=== PATIENT | male | born 1985 | race Hispanic/Latino ===

== ENCOUNTER 2017-07-26 20:02 | Emergency (ER) | payer BC ==
[2017-07-26 20:18] VITALS: BP 147/77; PULSE 50; RESP 14; TEMP 98.2; O2SAT 99
--- NOTE | 2017-07-26 20:46 | ED PDOC ---
HPI: Skin/Bite Injury Time Seen by Provider: 07/26/17 20:29 Chief Complaint (Nursing): Abnormal Skin Integrity Chief Complaint (Provider): rash on back History Per: Patient Onset/Duration Of Symptoms: Days (5) Current Symptoms Are (Timing): Still Present Location Of Injury: Right: Abdomen, Back Additional Complaint(s): progressive rash to RIGHT back and abdomen since Saturday, but had been feeling severe pain to area since Saturday and initially thought to be muscular. He has been taking motrin w minimal relief. Also applied icy-hot w lidocaine prior to onset of rash. No known exposures to chickenpox. Reports having chickenpox infection twice in childhood. Denies fever. Reports URI symptoms week prior to onset of pain, which has since resolved. PMD None. Past Medical History Reviewed: Historical Data, Nursing Documentation, Vital Signs Vital Signs: Last Vital Signs Temp 98.2 F 07/26/17 20:16 Pulse 50 L 07/26/17 20:16 Resp 14 07/26/17 20:16 BP 147/77 07/26/17 20:16 Pulse Ox 99 07/26/17 21:06 - Medical History PMH: No Chronic Diseases - Surgical History Surgical History: No Surg Hx - Family History Family History: States: No Known Family Hx - Social History Current smoker - smoking cessation education provided: No - Home Medications Home Medications: Ambulatory Orders Medication Instructions Recorded Calamine/Pramoxine [Caladryl] 180 ml EXT PRN PRN #1 bottle 07/26/17 Valacyclovir HCl [Valtrex] 1,000 mg PO TID #21 tablet 07/26/17 traMADol [Ultram] 50 mg PO TID PRN #15 tab 07/26/17 - Allergies Allergies/Adverse Reactions: Allergies Allergy/AdvReac Type Severity Reaction Status Date / Time No Known Allergies Allergy Verified 07/26/17 20:16 Review of Systems ROS Statement: Except As Marked, All Systems Reviewed And Found Negative (and as per HPI) Constitutional: Negative for: Fever, Chills Musculoskeletal: Positive for: Back Pain Skin: Positive for: Rash, Lesions Physical Exam - Reviewed Nursing Documentation Reviewed: Yes Vital Signs Reviewed: Yes - Physical Exam Appears: Positive for: In Acute Distress (mild painful) Head Exam: Positive for: ATRAUMATIC, NORMOCEPHALIC Skin: Positive for: Warm, Rash (vesicular erythematous rash in dermatomal pattern along RIGHT back extending to R lower abdomen) ENT: Negative for: Pharyngeal Erythema, Tonsillar Exudate Neck: Positive for: Painless ROM, Supple Cardiovascular/Chest: Positive for: Regular Rate, Rhythm. Negative for: Murmur Respiratory: Positive for: Normal Breath Sounds. Negative for: Respiratory Distress Gastrointestinal/Abdominal: Positive for: Soft. Negative for: Tenderness Back: Negative for: Vertebral Tenderness, Decreased ROM Extremity: Positive for: Normal ROM. Negative for: Deformity Lymphatic: Negative for: Adenopathy Neurologic/Psych: Positive for: Alert. Negative for: Motor/Sensory Deficits - ECG O2 Sat by Pulse Oximetry: 99 Disposition - Clinical Impression Clinical Impression: Silvia Counseled Patient/Family Regarding: Diagnosis, Need For Followup, Rx Given - Disposition Disposition: Routine/Home Disposition Time: 20:43 Condition: STABLE Additional Instructions: YOU CAN TAKE BENADRYL FOR ITCHING AND IBUPROFEN FOR MILD TO MODERATE PAIN. WASH HANDS FREQUENTLY READ ATTACHED INSTRUCTIONS ON HOW TO CARE FOR YOU CONDITION SEE YOUR DOCTOR SCHEDULED NEXT SATURDAY Prescriptions: Calamine/Pramoxine [Caladryl] 180 ml EXT PRN PRN #1 bottle PRN Reason: Itching / Pruritus traMADol [Ultram] 50 mg PO TID PRN #15 tab PRN Reason: SEVERE PAIN ONLY Valacyclovir HCl [Valtrex] 1,000 mg PO TID #21 tablet Instructions: Silvia (ED) Forms: [employer] (Yakut)
== END 2017-07-26 21:04 | disposition home or self-care (01) ==
LOC: H.ER 20:02
DX: B02.9 Zoster without complications (principal)